=== PATIENT | male | born 1990 | race Caucasian/White ===

== ENCOUNTER 2020-06-15 11:20 | Emergency (ER) | payer MEDICAID ==
[~2020-06-15] VITALS: Ht 180.3 cm; Wt 62.1 kg
[2020-06-15] MEDS ORDERED: ACETAMINOPHEN ES 500 MG TABLET ONE (11:44)
[2020-06-15] MEDS ORDERED: IBUPROFEN 600 MG TABLET ONE (11:44)
[2020-06-15] MEDS ORDERED: IBUPROFEN 600 MG TABLET PO ONE (11:45)
[2020-06-15] MEDS ORDERED: ACETAMINOPHEN ES 500 MG TABLET PO ONE (11:45)
[2020-06-15 13:16] VITALS: BP 116/63
== END 2020-06-15 12:59 | disposition home or self-care (01) ==
LOC: ER 11:20
DX: R51 Headache (principal)
CPT/HCPCS: 70450; A4663; A9150

== ENCOUNTER 2021-11-19 08:39 | Emergency (ER) | payer MEDICAID ==
[~2021-11-19] VITALS: Ht 172.7 cm; Wt 63.5 kg
[2021-11-19] MEDS ORDERED: IBUP-1953 PO (08:52)
== END 2021-11-19 09:28 | disposition home or self-care (01) ==
LOC: ER 08:39
DX: J06.9 Acute upper respiratory infection, unspecified (principal); Z20.822 Contact with and (suspected) exposure to COVID-19
CPT/HCPCS: A4663